=== PATIENT | female | born 1965 | race Caucasian/White ===

== ENCOUNTER 2017-07-23 09:57 | Day surgery (SDC) | payer BC ==
[~2017-07-23 09:57] MED LIST: LIDOCAINE HCL 1% MPF SOL ONE; PROPOFOL 500 MG/50 ML EMU IV ONE
[2017-07-23 12:00] VITALS: BP 145/77; PULSE 65; RESP 16; TEMP 97.4; O2SAT 100
== END 2017-07-23 12:13 | disposition home or self-care (01) ==
LOC: SURG 09:57
PROVIDERS: ATTEND Surgery
DX: Z12.11 Encounter for screening for malignant neoplasm of colon (principal); K62.1 Rectal polyp
CPT/HCPCS: 99001; J2001; J2704